=== PATIENT | female | born 1955 | race Caucasian/White ===

== ENCOUNTER 2018-10-15 14:47 | Emergency (ER) | payer BC, SELFPAY ==
[2018-10-15 14:49] VITALS: BP 85/62; PULSE 103; RESP 17; TEMP 36.9; O2SAT 95; BMI 37.0
--- NOTE | 2018-10-15 15:32 | EKG12_ITS ---
Test Reason : DIZZINESS Blood Pressure : / mmHG Vent. Rate : 096 BPM Atrial Rate : 096 BPM P-R Int : 184 ms QRS Dur : 076 ms QT Int : 358 ms P-R-T Axes : 027 -07 040 degrees QTc Int : 452 ms Normal sinus rhythm Septal infarct , age undetermined Abnormal ECG Confirmed by CHAYO SALAZAR, NIKIA ([id number]), order editor WENCESLAO MAHMOOD ([id number]) on 10/19/2018 11:43:26 AM Referred By: JOHNNIE/DALIA Confirmed By:NIKIA DOMINGO MD
--- NOTE | 2018-10-15 15:32 | RAD_ITS ---
STUDY: X-RAY CHEST REASON FOR EXAM: Female, 63 years old. Dizziness TECHNIQUE: Frontal and lateral views of the chest were obtained. COMPARISON: None. FINDINGS: The lungs are underaerated. There are no focal airspace opacities. There is no demonstrated pleural abnormality. There is minimal atelectasis in the left lung base. The cardiac silhouette is normal in size allowing for low volume inspiration. The mediastinum and hilar regions are unremarkable. Normal visualized pulmonary arteries. There is atherosclerotic calcification of the thoracic aorta. There is moderate dextroscoliosis of the thoracic spine. A Morrow cain traverses the mid and lower thoracic spine. There are degenerative changes in both shoulders. Cholecystectomy clips are present. There is a large hiatal hernia. RAD/Chest PA and Lateral IMPRESSION: No acute cardiopulmonary abnormalities. There is a large hiatal hernia. Electronically Signed: Carol Werner MD at 17:03 EST Tel Direct: [phone], Service support ,
--- NOTE | 2018-10-15 15:35 | ED.DCSUM_ITS ---
- ER Visit Summary Date of Service: 10/15/18 Chief Complaint: Lightheaded, fall History of Present Illness: The patient is a 63 F presents by EMS due to lightheaded symptoms and a fall while at the grocery store. States standing and lying felt lightheaded and dizzy, nausea, states she went to the ground bumping the back of her head. Denies any significant injury. No headache. No visual changes. No current nausea or vomiting. States that he had 3 days of diarrhea nonproductive cough recently. 3-4 episodes a day. No melena or hematochezia. No recent antibiotics. No urinary symptoms. No chest pains. No shortness of breath. No anticoagulation medicines. Patient has a history of blood pressure on 3 medications she takes at 7 AM in the morning. She been trying to keep up with fluids. Denies abdominal pain. Reports saw the urgent care yesterday was placed on antiemetics and antispasmodics. Denies cardiac history. No heart failure. Physical Examination: General: Alert and oriented ?3, no acute distress HEENT: Normocephalic, atraumatic. No hemotympanum moist mucosa membranes Neck: supple, nontender. No midline tenderness Cardiovascular: Regular rate and rhythm, no murmurs Respiratory: Normal breath sounds, symmetric, no distress Abdomen: Soft, nontender, nondistended Extremities: Nontender, no edema, pulses intact ?4 Neuro: no focal neurological deficits. Test Results: EKG: Sinus rate of 96, no ST or T wave changes. QTc 452. White count 6.4 hemoglobin 12.5. Potassium 2.9. Creatinine 1.52. Urine 100 leukocytes, white blood cell 5-10, squamous cells 10-25. Urine culture sent and pending. Chest x-ray negative. Emergency Department Course and Treatment: Patient low blood pressure 85/61 in triage. History of diarrhea and decreased oral intake on top of being on blood pressure medicines likely her cause. She will be hydrated. EKG obtained normal. Patient labs drawn, notes acute renal insufficiency and hypokalemia. Patient history reports decreased oral intake and diarrhea, labs to support this. She was given oral potassium. She given 2 L of fluid with improved symptoms. She is ambulating department to the restroom with no return of symptoms. Patient had no loose stools in the ED. She had no C. difficile risk factors. Discussed with patient continue oral hydration at home. She will need follow-up with her PCP after the weekend for recheck of labs and symptoms. Nexus CT head criteria is negative. No headache symptoms with the fall. 5-day prescription for potassium replacement. Signs and symptoms discussed return. All questions were answered. Treatment Plan: [] Disposition: Discharge Impression: 1. Orthostatic near syncope 2. Acute renal insufficiency 3. Diarrhea 4. Closed head injury 5. Hypokalemia This note was generated with Coine[employer]-IOation software. It may contain incorrect words, spelling, and punctuation that were not noted in review of the chart prior to signing ED Disposition - Plan for ED Patient: Disposition: Home or Assisted Living Chief Complaint: Weakness Diagnosis: Orthostatic near syncope, Acute renal insufficiency, Hypokalemia, Diarrhea, Closed head injury Instructions: ED Vomiting Diarrhea Nonspecific Ad, ED Head Injury Closed, ED Insufficiency Renal Prescriptions: Potassium Chloride [K-Dur] 20 meq PO DAILY #5 tablet Referrals: Dane Fitzpatrick MD [Primary Care Provider] - 3-5 Days Additional Instructions: Creatinine 1.52. Potassium 2.9. Continue oral hydration. Take potassium supplements as prescribed. Follow-up with your PCP for recheck of labs.
[2018-10-15] MEDS: 0.9% Normal Saline 1,000 ML 1000 ML IV ×2 (15:41→16:17)
[2018-10-15 15:58] LABS: Mucous, Urine 0 SEEN /hpf (<or=2+); Red Blood Cells-Urine 0 SEEN /hpf (0-5)
[2018-10-15 16:01] LABS: Absolute Lymphocyte Count 1.33 X10^3/ul (0.83-4.51); Absolute Neutrophil Count 4.3 X10^3/uL (2.0-7.7); Basophil# 0.01 X10^3/uL; Basophil% 0.2 % (0-1); Eosinophil# 0.11 X10^3/uL; Eosinophils% 1.7 % (0-5); Hematocrit 37.5 % (37-47); Hemoglobin 12.5 g/dl (12.0-15.0); Lymphocyte # 1.33 X10^3/ul (4.0); Lymphocyte % 20.8 % (19-41); Mean Corp Hgb Conc 33.3 g/gl (32-36); Mean Corpuscular Hgb 31.8 pg (27.0-32.0); Mean Corpuscular Volume 95.4 fL (81-99); Mean Platelet Vol. 11.5 fl (6.2-12.0); Monocyte% 9.4 % (0-10); Neutrophil # 4.34 X10^3/uL (2.7-7.7); Neutrophil % 67.7 % (47-70); Platelet Count 217 K/mm3 (150-450); RBC Distribution Width CV 12.3 % (11.6-14.6); Red Blood Count 3.93 M/mm3 (4.2-5.4); White Blood Count 6.4 K/mm3 (4.4-11.0)
[2018-10-15 16:02] LABS: POSITIVE COUNT NO; POSITIVE DIFFERENTIAL NO; POSITIVE MORPHOLOGY NO
[2018-10-15 16:15] LABS: Anion Gap 7 (5-15); BUN 26 mg/dL (7-18); BUN/Creat Ratio 17.1 RATIO (10-20); Calcium,Total 8.7 mg/dL (8.5-10.1); Chloride 109 mmol/L (98-107); Creatinine, Serum 1.52 mg/dL (0.55-1.02); EST Glomerular Filtration Rate 37 mL/min (>60); Est Glom Filt Rate - Afr Amer 44 mL/min (>60); Estimated Creatinine Clearance 28.22 ml/min; Glucose 98 mg/dL (74-106); Potassium 2.9 mmol/L (3.5-5.1); Sodium Level 139 mmol/L (136-145)
[2018-10-15 16:48] LABS: Color, Urine Yellow (Yellow); Glucose, Dipstick Normal (Normal); Ketone-Dipstick 5 mg/dl (Negative); Leukocyte Esterase-Dipstick 100 /ul (Negative); Nitrite-Dipstick Negative (Negative); Occult Blood-Urine 25 /ul (Negative); Protein-Dipstick 30 mg/dl (Negative); Urine Clarity Sl. Cloudy (Clear); Urine Urobilinogen Normal (Normal)
[2018-10-15 16:49] LABS: Urine Bilirubin Dipstick 1 mg/dL (Negative)
[2018-10-15 16:56] LABS: Bacteria 3+ /hpf (None Seen); Squamous Epithelial Cells - UA 10-25 SEEN /hpf (5-10); White Blood Cells 5-10 SEEN /hpf (0-5)
[2018-10-15 17:03] VITALS: BP 107/63; PULSE 86; RESP 16; O2SAT 96
[2018-10-15 17:25] VITALS: BP 107/63; PULSE 87; RESP 16; O2SAT 96
== END 2018-10-15 17:35 | disposition home or self-care (01) ==
PROVIDERS: Emergency Provider Emergency Medicine; Family Provider Family Medicine; PCP Family Medicine
DX: R55 Syncope and collapse (principal); N28.9 Disorder of kidney and ureter, unspecified; R19.7 Diarrhea, unspecified; E87.6 Hypokalemia; S09.90XA Unspecified injury of head, initial encounter; Z79.899 Other long term (current) drug therapy; W18.30XA Fall on same level, unspecified, initial encounter; Y93.89 Activity, other specified; Y92.512 Supermarket, store or market as the place of occurrence of the external cause; Y99.8 Other external cause status
CPT/HCPCS: 71046; 80048; 81001; 85025; 87086; 87088; 93005; 96360; 99285; J7030; A4216

== ENCOUNTER 2024-12-24 17:48 | Emergency (ER) | payer BC, SELFPAY ==
[2024-12-24 17:48] VITALS: BP 124/83; PULSE 95; RESP 16; TEMP 36.8; O2SAT 95; BMI 33.7
--- NOTE | 2024-12-24 19:38 | ED.RN ---
Pt states she is tired of waiting, ambulates out of dept without difficulty.
== END 2024-12-24 19:37 | disposition left against medical advice (07) ==
LOC: ED 19:48
PROVIDERS: PCP Family Medicine
DX: Z53.21 Procedure and treatment not carried out due to patient leaving prior to being seen by health care provider (principal)

== ENCOUNTER 2024-12-25 16:28 | Emergency (ER) | payer MEDICARE, SELFPAY ==
[2024-12-25] VITALS (9 sets, daily range): BP systolic 125–162; BP diastolic 64–84; PULSE 91–112; RESP 14–24; TEMP 35.9–38.1; O2SAT 83–97; BMI 32.5
--- NOTE | 2024-12-25 18:32 | ED.RN ---
CONTACT RAPHAEL RODRIGUEZ AT [phone] FOR PERSON TO NOTIFY
--- NOTE | 2024-12-25 19:33 | EX.ED.DYSGE1 ---
HPI History of Present Illness Chief Complaint: Sore Throat [facility] Medical History (Updated 12/25/24 @ 19:49 by Leia Cervantes) shanta Scoliosis FH: cholecystectomy FH: bariatric surgery Home Medications ?Medication ?Instructions ?Recorded ?Last Taken ?Type potassium chloride 20 mEq 20 meq PO DAILY ##5 10/15/18 Unknown Rx tablet,extended release(part/cryst) (Klor-Con M) Allergy/AdvReac Type Severity Reaction Status Date / Time lisinopril Allergy Mild COUGH Verified 12/25/24 16:29 naproxen Allergy Itching Verified 12/25/24 16:28 Surgical History (Updated 12/25/24 @ 19:49 by Leia Cervantes) H/O section Social History Smoking Status: Never smoker EXAM Physical Exam Const Vital Signs: 12/25/24 16:29 12/25/24 19:45 12/25/24 20:45 Temperature 96.6 F L 100.5 F H Temperature Source Temporal Oral Pulse Rate 112 H 96 Respiratory Rate 15 15 Blood Pressure 162/84 H 153/72 H Blood Pressure Mean 110 99 Pulse Ox 97 95 83 Oxygen Delivery Method Room Air Room Air Room Air Oxygen Flow Rate (L/min) 12/25/24 20:47 12/25/24 21:00 12/25/24 21:30 Temperature Temperature Source Pulse Rate 91 100 Respiratory Rate 24 H 18 Blood Pressure 125/64 H 131/66 H Blood Pressure Mean 82 86 Pulse Ox 94 95 96 Oxygen Delivery Method Nasal Cannula Oxygen Flow Rate (L/min) 2 12/25/24 22:00 12/25/24 22:13 Temperature Temperature Source Pulse Rate 95 96 Respiratory Rate 14 20 H Blood Pressure 132/73 H 132/73 H Blood Pressure Mean 90 92 Pulse Ox 94 93 Oxygen Delivery Method Room Air Oxygen Flow Rate (L/min) MDM MDM MDM Narrative Medical decision making narrative: HISTORY OF PRESENT ILLNESS: 69-year-old female presents concern for sore throat. Notes she was seen at urgent care and was told she had a bilateral peritonsillar abscess. She further states she has had 2 days of worsening symptoms. Sore throat, difficulty eating, decreased p.o. intake. Notes mild fever. Notes history of diabetes, KAYLA, high blood pressure and high cholesterol. Denies any other immunocompromising states. REVIEW OF SYSTEMS: Pertinent positives: Sore throat Pertinent negatives: Chest pain, vomiting PHYSICAL EXAM: Nursing triage notes reviewed, Vital signs reviewed Constitutional: please see mdm HENT: MMM, uvula midline, bilateral tonsils touching uvula, no pooling secretions, no submandibular edema. No trismus noted. Eyes: Pupils equal round and reactive to light, Extraocular muscles intact Neck: No stridor, no JVD, full neck ROM Lungs: Clear to auscultation, No wheezing or rales. No increased work of breathing, no conversational dyspnea, no accessory muscle use, no nasal flaring. No respiratory distress noted Heart: Regular rate and rhythm, No murmurs, No rubs and No gallops, 2+ distal pulses (radial, femoral, posterior tibial) in all extremities Abdomen: Soft, there is no tenderness, rigidity, rebound or guarding, no obvious peritoneal signs, no palpable pulsatile abdominal masses, no auscultated abdominal bruit : No CVAT Extremities: No edema Neuro: No new focal neurological deficits, cranial nerves II through XII intact, 5/5 strength in all present extremities. Intact sensation to light touch in all present extremities, 2+ reflexes bilateral patella tendons. Skin: No rash or lesions noted MEDICAL DECISION MAKING: Chief Complaint: Sore External records reviewed: Reviewed Clinisync: Read report from patient CT scan of her neck with IV contrast. It notes bilateral faucial tonsillar enlargement with extensive phlegmon/abscess formation. There is well-organized collection along the left faucial tonsil Prosta 11 x 9 mm. There is additional collection of 15 x 11 mm on the contralateral side. There is pharyngeal mucosal edema. Factors affecting care: Type 2 diabetes Social determinants of health: none History obtained from others: patient's daughter Consults: Internal Medicine (Dr. Good, [facility]) [facility] Narrative: Patient was hemodynamically stable, afebrile and [id number]. Exam without drooling, trismus, significant neck stiffness. There is noted change in voice per patient report. There is bilateral tonsillar edema. Uvula is midline however tonsils are touching. The posterior oropharynx is clear. No respiratory distress noted. CT findings reviewed from earlier today which are consistent with tonsillitis and pharyngitis with extensive mucosal edema, phlegmon is changes bilateral tonsillar abscesses. After evaluating the patient and reviewing the patient imaging studies added on a CBC, BMP. Gave dexamethasone, Unasyn, Toradol and Zofran. ALL IMAGES (IF OBTAINED) HAVE BEEN PERSONALLY REVIEWED AND INTERPRETED BY MYSELF. CBC with leukocytosis suggestive of systemic inflammation, no anemia or thrombocytopenia BMP without evidence of significant electrolyte abnormalities, no anion gap, no acute kidney injury. Lab and CT results I wanted to consult ENT. Unfortunately do not have ENT available I will screen [facility]. We reached out to several [facility] institutions including [facility], [facility] The patient and/or family, caregivers express understanding. The patient and/or family, caregivers agrees with the plan. Shared decision making: I will have a discussion with the patient and or visitors regarding risk/benefits of further testing or admission. They will be made aware of of the risk/benefits inherent in this decision they will be given the opportunity to voice understanding. Total critical care time today provided was at least 0 minutes. This excludes separately billable procedures. Critical care time (if documented) is secondary to the patient having high probability of clinically significant/life threatening deterioration in the patient's condition which required my urgent intervention. Impression: 1. Peritonsillar abscess 2. Fever 3. Leukocytosis Dispo: Transfer to [facility] for definitive ENT evaluation and admission. This note was generated with [employer] dictation software. It may contain incorrect words, spelling, and punctuation that were not noted in review of the chart prior to signing. Lab Data Labs: Laboratory Results - last 24 hr 12/25/24 19:40 WBC 17.4 H RBC 3.76 L Hgb 12.0 Hct 36.8 L MCV 97.9 MCH 31.9 MCHC 32.6 RDW Std Deviation 47.8 H RDW Coeff of Fabrice 13.3 Plt Count 211 MPV 11.9 Immature Gran % (Auto) HUMAN RESOURCES DESIGNATE Neut % (Auto) HUMAN RESOURCES DESIGNATE Lymph % (Auto) HUMAN RESOURCES DESIGNATE Dundy % (Auto) HUMAN RESOURCES DESIGNATE Eos % (Auto) HUMAN RESOURCES DESIGNATE Baso % (Auto) HUMAN RESOURCES DESIGNATE Absolute Neuts (auto) 14.8 H Absolute Lymphs (auto) 1.74 Total Counted 100 Neutrophils % (Manual) 85 H Lymphocytes % (Manual) 10 L Monocytes % (Manual) 1 Metamyelocytes % 4 H Nucleated RBC % 0 [address] Review May foll Atypical Lymphocytes 2+ Plt Morphology Comment GIANT Sodium 139 Potassium 4.2 Chloride 105 Carbon Dioxide 27.0 Anion Gap 7 BUN 14 Creatinine 0.78 Estim Creat Clear Calc 59.50 Est GFR (MDRD) Af Amer 95 Est GFR (MDRD) Non-Af 78 BUN/Creatinine Ratio 18.1 Glucose 136 H Calcium 9.7 Discharge Plan Triage Chief Complaint: Sore Throat ED Provider: Eder Corey Dx/Rx/DC Orders Prescriptions: No Action potassium chloride [Klor-Con M20] 20 MEQ tablet 20 meq PO DAILY Qty: 5 0RF Primary Care Provider: Dane Fitzpatrick Referrals: Dane Fitzpatrick MD [Primary Care Provider] - Print Language: Sami
[2024-12-25] MEDS: dexAMETHasone 10 MG/ML Vial 6 MG IV (20:10)
[2024-12-25] MEDS: Ketorolac 15 MG/ML Vial IV (20:10)
[2024-12-25] MEDS: Ampicillin/Sulbactam 3 GM in 0.9% Normal Saline (100mL MB+) 100 ML IV (20:10)
[2024-12-25] MEDS: Ondansetron 4 MG/2 ML Vial IV (20:10)
[2024-12-25] MEDS: 0.9% Normal Saline (500mL Bag) 500 ML 1000 ML IV (20:10)
[2024-12-25 20:14] LABS: Basophil# 0.03 X10^3/uL; Eosinophil# 0.01 X10^3/uL; Hematocrit 36.8 % (37-47); Lymphocyte # 1.92 X10^3/ul (0.83-4.51); Mean Corp Hgb Conc 32.6 g/dL (32-36); Mean Corpuscular Hgb 31.9 pg (27.0-32.0); Mean Corpuscular Volume 97.9 fL (81-99); Mean Platelet Vol. 11.9 fl (6.2-12.0); Monocyte# 1.55 X10^3/uL; NRBC Flagged by Analyzer 0 % (0-5); POSITIVE DIFFERENTIAL YES; Platelet Count 211 K/mm3 (150-450); RBC Distribution Width CV 13.3 % (11.6-14.6); RBC Distribution Width SD 47.8 fl (35.1-43.9); Red Blood Count 3.76 M/mm3 (4.2-5.4); White Blood Count 17.4 K/mm3 (4.4-11.0)
[2024-12-25 20:27] LABS: Anion Gap 7 (5-15); BUN 14 mg/dL (7-18); BUN/Creat Ratio 18.1 RATIO (10-20); Calcium,Total 9.7 mg/dL (8.5-10.1); Chloride 105 mmol/L (98-107); Creatinine, Serum 0.78 mg/dL (0.55-1.02); EST Glomerular Filtration Rate 78 mL/min (>60); Est Glom Filt Rate - Afr Amer 95 mL/min (>60); Glucose 136 mg/dL (74-106); Potassium 4.2 mmol/L (3.5-5.1); Sodium Level 139 mmol/L (136-145)
[2024-12-25 20:31] LABS: Differential Indicated SCAN CRITERIA MET
[2024-12-25 21:02] LABS: Atypical Lymphocyte 2+ %; Lymphocyte 10 % (19-41); Metamyelocyte 4 % (0-1); Monocyte 1 % (0-10); Neutrophil-Segmented 85 % (47-70); Platelet Morphology GIANT; Total Cells Counted 100 (MANUAL DIFF)
[2024-12-25 21:03] LABS: Scan Smear per Review Criteria MANUAL DIFF
[2024-12-25 21:04] LABS: Absolute Neutrophil Count 14.8 X10^3/uL (2.0-7.7)
[2024-12-25 21:05] LABS: Absolute Lymphocyte Count 1.74 X10^3/uL (0.83-4.51)
[2024-12-26] VITALS: BP 134/78; PULSE 92; RESP 15; O2SAT 95
[2024-12-26 01:00] VITALS: BP 134/78; PULSE 88; RESP 14; O2SAT 97
[2024-12-26 01:23] VITALS: O2SAT 96
[2024-12-26 03:00] VITALS: BP 121/82; PULSE 83; RESP 12; O2SAT 96
--- NOTE | 2024-12-26 04:00 | ED.RN ---
Patient's oxygen levels abruptly dropped to the low 80's. When entering patients room, she quickly recovered going back into the mid 90s. Pt states she has sleep apnea. Pt observed as a mouth breather. Pt continuing to wear 2L via NC.
[2024-12-26 04:28] VITALS: BP 125/82; PULSE 87; RESP 12; TEMP 36.5; O2SAT 99
--- NOTE | 2024-12-26 04:30 | ED.RN ---
Report called to [facility], spoke with nurse Mely. No further questions to answer at this time.
[2024-12-26 05:00] VITALS: BP 138/87; PULSE 85; RESP 12; O2SAT 97
[2024-12-29 09:40] LABS: Pathologist Review Reviewed
== END 2024-12-26 06:56 | disposition short-term general hospital (02) ==
PROVIDERS: Emergency Provider Emergency Medicine; PCP Family Medicine; Visit Provider Emergency Medicine
DX: J36 Peritonsillar abscess (principal); E11.9 Type 2 diabetes mellitus without complications; J35.1 Hypertrophy of tonsils; E78.00 Pure hypercholesterolemia, unspecified; D72.829 Elevated white blood cell count, unspecified; I10 Essential (primary) hypertension
CPT/HCPCS: 80048; 85025; 96365; 96375; 99285; A4216; J0295; J2405

== ENCOUNTER 2025-09-11 10:20 | Emergency (ER) | payer MEDICARE, SELFPAY ==
[2025-09-11 10:21] VITALS: BP 160/88; PULSE 91; RESP 18; TEMP 36.4; O2SAT 98; BMI 35.7
--- NOTE | 2025-09-11 10:37 | CT_ITS ---
PROCEDURE: ABDOMEN/PELVIS W IV CONT ONLY 09/11/2025 REASON FOR EXAM: R FLANK PAIN Hematuria. TECHNIQUE: Procedure Code: [id number] Modality: CT Procedure: ABDOMEN/PELVIS W IV CONT ONLY Coronal and Sagittal reconstruction series were provided. CONTRAST: Isovue-300 VOLUME: 100 mL One or more dose reduction techniques were used (e.g., Automated exposure control, adjustment of the mA and/or kV according to patient size, use of iterative reconstruction technique. RADIATION DOSE SUMMARY: CTDlvol: 19.06 mGy DLP: 1476.65 mGycm COMPARISON: None FINDINGS: Lung bases: The lung bases are clear. Status post subtotal gastrectomy and hiatal hernia. Liver: Cysts are seen in both lobes of the liver more prominent on the left side. The largest cyst measures 5.6 cm by 5.2 cm. Gallbladder: Surgically absent. Spleen: Normal size. Pancreas: Diffuse fatty atrophy. Adrenals: Unremarkable Kidneys: Right hydronephrosis and hydroureter. There is a 5.8 mm calculus at the base of the bladder on the right side suggestive of a recently passed right ureteral calculus. Tiny nonobstructive calculi are seen in the lower pole calyx of both kidneys. Bladder: Diffuse bladder wall thickening although the bladder is not completely distended. Reproductive Organs: Normal uterine size and contour. Ovaries are unremarkable. Bowel: Colonic diverticulosis without diverticulitis. Appendix: The appendix is not identified. There is no inflammatory process identified in the right lower quadrant to suggest appendicitis. Lymph nodes: No suspicious lymph node enlargement. Vasculature: Mild diffuse atherosclerotic calcifications are noted. Peritoneum / Retroperitoneum: Unremarkable Bones: Degenerative changes of the spine. Evidence of prior Morrow cain fixation of the lower thoracic and upper lumbar vertebrae. Grade 1 anterior listhesis of L4 on L5 most likely secondary to facet joint osteoarthritis. Levoscoliosis. CT/Abdomen/Pelvis W IV Cont ONLY IMPRESSION: Hepatic cysts. Pancreatic atrophy. Findings suggestive of recently passed right ureteral calculus. The calculus i s seen in the urinary bladder. Reading Location: [place] [address]
--- NOTE | 2025-09-11 10:38 | EDS_ITS ---
HPI History of Present Illness Chief Complaint: Flank Pain Narrative Narrative: Patient is a 70-year-old female past medical history of hypercholesteremia, hypertension who presents to the emergency department chief complaint of right- sided back pain. Patient states that her symptoms started on Wednesday and that she had pain in her back she states that she had some nausea associated with this. States that on Wednesday she felt well overall and then Wednesday her pain returned and has not gotten any better. They went to urgent care and they noted there was blood in her urine at that point and therefore they sent her here to the emergency department to be further evaluated. Patient denies any trauma or injuries to her back she states that otherwise she has been urinating normal for self and having normal bowel movements PFSH [facility] Medical History shanta Scoliosis FH: cholecystectomy FH: bariatric surgery Home Medications ?Medication ?Instructions ?Recorded ?Last Taken ?Type potassium chloride 20 mEq 20 meq PO DAILY ##5 10/15/18 Unknown Rx tablet,extended release(part/cryst) (Klor-Con M) albuterol sulfate 90 mcg/actuation 2 puff inhalation Q 4H PRN PRN 12/26/24 Unknown History aerosol inhaler shortness of breath or wheez ing atorvastatin 10 mg tablet 10 mg PO QODAY cholesterol 0 12/26/24 Unknown History duloxetine 60 mg capsule,delayed 60 mg PO DAILY Unknown History release fluticasone 100 mcg-salmeterol 50 1 ea inhalation BID 12/26/24 Unknown History mcg/dose blistr powdr for inhalation losartan 100 mg tablet 100 mg PO DAILY 12/26/24 Unk nown History cephalexin 500 mg capsule 500 mg PO BID #10 caps 09/11 Unknown Rx Allergy/AdvReac Type Severity Reaction Status Date / Time lisinopril Allergy Mild COUGH Verified 09/11/25 10:21 naproxen Allergy Itching Verified 09/11/25 10:21 Surgical History H/O section Social History Smoking Status: Never smoker ROS ROS ED ROS Narrative Constitutional: Denies fevers, chills, headaches Eyes: Denies double vision Cardiovascular: Denies chest pain Respiratory: Denies coughing wheezing shortness of breath Abdomen: Denies abdominal pain nausea vomit diarrhea : Complains of urinary symptoms as noted above Neurological: Denies numbness, weakness, tingling Musculoskeletal: Complains of right sided back pain as noted above Skin: Denies any rashes or lesions EXAM Physical Exam Narrative Exam Narrative: General: Patient lying in bed rest comfortably did not appear to be in acute distress Head: Atraumatic, normocephalic Eyes: PERRL bilaterally, EOMI bilaterally, no conjunctival injection noted Neck: Soft, supple, trachea midline Cardiovascular: Regular rate and rhythm Respiratory: Clear to auscultation bilaterally Abdomen: Soft, nondistended, no tenderness to palpation Musculoskeletal: Patient has right-sided CVA tenderness noted on exam Extremities: +5/5 strength noted in the bilateral lower extremities Neurological: Patient follow commands and that she was at [facility] the year is 2024 Skin: Warm, dry, intact no rashes or lesions noted Const Vital Signs: 09/11/25 10:21 Temperature 97.5 F L Temperature Source Oral Pulse Rate 91 Respiratory Rate 18 Blood Pressure 160/88 H Blood Pressure Mean 112 Pulse Ox 98 Oxygen Delivery Method Room Air MDM MDM MDM Narrative Medical decision making narrative: Patient is a 70-year-old female who presents to the emergency department the chief complaint of right-sided back pain, hematuria. On the differential diagnose includes but not limited to UTI, pyelonephritis, urolithiasis, AAA. Once workup is obtained and reviewed she will be reevaluated. Patient CBC reviewed and showed a leukocytosis of 13,000, it was 12.3, plate count was noted to be normal at 205. Patient is 138, potassium normal 3.6, creatinine was normal 1.18. Patient AST and ALT are normal at 20 and 15 respectively. Patient urinalysis reviewed showed 50 occult blood, leukocyte esterase negative nitrates 5-10 white cells with 1+ bacteria however this is likely contaminated sample as she has 10-25 squamous epithelial cells noted this will be sent for culture. Patient CT ab pelvis with IV contrast reviewed which showed hepatic cyst. Pancreatic atrophy. Finding suggestive of a recently passed right ureteral calculus as this calculus is seen in the urinary bladder. Did discuss the results with the patient she like to go home at this point time. Patient be given a dose of Toradol before discharge. She be placed on Keflex which she will be given her first dose here in the emergency department she is vies follow-up with her doctor outpatient setting return with worsening symptoms or any concerns. She is agreeable this plan all question concerns answered she was discharged home in stable condition Lab Data Labs: Laboratory Results - last 24 hr 09/11/25 09/11/25 10:38 10:45 WBC 13.1 H RBC 3.89 L Hgb 12.3 Hct 37.3 MCV 95.9 MCH 31.6 MCHC 33.0 RDW Std Deviation 45.3 H RDW Coeff of Fabrice 12.9 Plt Count 205 MPV 11.5 Immature Gran % (Auto) 0.300 Neut % (Auto) 80.3 H Lymph % (Auto) 10.1 L Woodson % (Auto) 8.7 Eos % (Auto) 0.4 Baso % (Auto) 0.2 Absolute Neuts (auto) 10.6 H Absolute Lymphs (auto) 1.32 Nucleated RBC % 0 Sodium 138 Potassium 3.6 Chloride 101 Carbon Dioxide 25.7 Anion Gap 11 BUN 15 Creatinine 1.18 Estim Creat Clear Calc 41.79 L Est GFR (MDRD) Non-Af 49 L BUN/Creatinine Ratio 13.0 Glucose 155 H Calcium 9.0 Total Bilirubin 0.50 AST 20 ALT 15 Alkaline Phosphatase 106 H Total Protein 6.9 Albumin 3.7 Globulin 3.3 Albumin/Globulin Ratio 1.1 Urine Color Yellow Urine Clarity Sl. Cloudy Urine pH 6.0 Ur Specific Clear 1.020 Urine Protein 30 H Urine Glucose (UA) Normal Urine Ketones Negative Urine Occult Blood 50 H Urine Nitrite Negative Urine Bilirubin Negative Urine Urobilinogen 1 H Ur Leukocyte Esterase 100 H Urine RBC 5-10 SEEN Urine WBC 5-10 SEEN Ur Squamous Epith Cells 10-25 SEEN Urine Bacteria 1+ Urine Mucus 0 SEEN Radiography Diagnostic Testing: Clinical Impression(s) from Imaging Studies Abdomen/Pelvis CT 09/11/25 10:37 IMPRESSION: Hepatic cysts. Pancreatic atrophy. Findings suggestive of recently passed right ureteral calculus. The calculus is seen in the urinary bladder. Reading Location: [place] [id number] Discharge Plan Triage Chief Complaint: Flank Pain ED Provider: Allen Staples Dx/Rx/DC Orders Clinical Impression: Urolithiasis, Acute right flank pain, Hypertension Prescriptions: New cephalexin 500 mg capsule 500 mg PO BID Qty: 10 0RF No Action potassium chloride [Klor-Con M20] 20 MEQ tablet 20 meq PO DAILY Qty: 5 0RF albuterol sulfate 90 mcg/actuation HFA aerosol inhaler 2 puff inhalation Q4H PRN PRN (Reason: shortness of breath or wheezing) atorvastatin 10 mg tablet 10 mg PO QODAY fluticasone propion-salmeterol 100-50 mcg/dose blister with device 1 ea inhalation BID losartan 100 mg tablet 100 mg PO DAILY duloxetine 60 mg capsule,delayed release(DR/EC) 60 mg PO DAILY Primary Care Provider: Dane Fitzpatrick Referrals: Dane Fitzpatrick MD [Primary Care Provider, Family Practice] Activity Restrictions/Additional Instructions: Does appear that he passed a kidney stone as the kidney stone is in your bladder currently. Take antibiotics as prescribed. Use ibuprofen for pain control. Follow-up your doctor in the outpatient setting and return with worsening symptoms or any concerns. Print Language: Belarusian Disposition Disposition: Home, Self Care
[2025-09-11 10:42] LABS: Hematocrit 37.3 % (37-47); Hemoglobin 12.3 g/dL (12.0-15.0); Immature Granulocytes Count 0.040 X10^3/uL (0.0-0.0); Mean Corp Hgb Conc 33.0 g/dL (32-36); Mean Corpuscular Volume 95.9 fL (81-99); Mean Platelet Vol. 11.5 fl (6.2-12.0); NRBC Flagged by Analyzer 0 % (0-5); Platelet Count 205 K/mm3 (150-450); RBC Distribution Width CV 12.9 % (11.6-14.6); RBC Distribution Width SD 45.3 fl (35.1-43.9); Red Blood Count 3.89 M/mm3 (4.2-5.4); White Blood Count 13.1 K/mm3 (4.4-11.0)
[2025-09-11] MEDS: 0.9% Normal Saline (1000mL) 1,000 ML 999 ML IV (10:43)
[2025-09-11 10:48] LABS: Mucous, Urine 0 SEEN /hpf (<or=2+)
[2025-09-11 10:52] LABS: Color, Urine Yellow (Yellow); Glucose, Dipstick Normal (Normal); Ketone-Dipstick Negative (Negative); Leukocyte Esterase-Dipstick 100 /ul (Negative); Nitrite-Dipstick Negative (Negative); Occult Blood-Urine 50 /ul (Negative); Protein-Dipstick 30 mg/dl (Negative); Specific Gravity, Urine 1.020 (1.002-1.030); Urine Bilirubin Dipstick Negative (Negative)
[2025-09-11 11:00] LABS: AST(SGOT) 20 U/L (<=31); Alanine Aminotransfer ALT/SGPT 15 U/L (<=34); Albumin, Serum 3.7 g/dL (3.4-4.8); Alkaline Phosphatase 106 U/L (35-104); Anion Gap 11 (5-15); BUN 15 mg/dL (4-19); BUN/Creat Ratio 13.0 RATIO (10-20); Calcium,Total 9.0 mg/dL (7.6-11.0); Carbon Dioxide 25.7 mmol/L (21.0-32.0); Chloride 101 mmol/L (98-108); Estimated Creatinine Clearance 41.79 ml/min (50-250); Globulin 3.3 g/dL (2.2-4.2); Glucose 155 mg/dL (70-99); Potassium 3.6 mmol/L (3.3-5.1)
[2025-09-11 11:05] LABS: Red Blood Cells-Urine 5-10 SEEN /hpf (0-5); Squamous Epithelial Cells - UA 10-25 SEEN /hpf (5-10)
[2025-09-11] MEDS: Ketorolac 30 MG/ML Syringe IV (12:00)
[2025-09-11 12:21] VITALS: BP 166/78; PULSE 78; RESP 16; TEMP 36.7; O2SAT 97
== END 2025-09-11 12:22 | disposition home or self-care (01) ==
PROVIDERS: Emergency Provider Emergency Medicine; PCP Family Medicine; Visit Provider Emergency Medicine
DX: N20.9 Urinary calculus, unspecified (principal); K76.89 Other specified diseases of liver; E78.00 Pure hypercholesterolemia, unspecified; K86.89 Other specified diseases of pancreas; I10 Essential (primary) hypertension; R10.A1 Flank pain, right side
CPT/HCPCS: 74177; 80053; 81001; 85025; 87086; 87088; 96361; 96374; 99283; Q9967; A4216